=== PATIENT | female | born 1965 | race Caucasian/White ===

== ENCOUNTER 2020-07-25 05:38 | Inpatient (IN) ==
[2020-07-04 11:34] LABS: Basophils % 0.2 % (0.0-0.8); Eosinophils # 0.1 10*3/uL (0.0-0.87); Eosinophils % 1.2 % (0.00-10.9); Hematocrit 35.6 VOL% (35.7-47.0); Hemoglobin 12.3 GM/DL (12.0-16.0); Immature Granulocytes % 0.4 %; Immature Granulocytes Absolute 0.02 #; Lymphocytes # 1.2 10*3/uL (1.4-4.0); Lymphocytes % 24.2 % (21.3-54.2); Mean Corpuscular HGB Conc 34.6 GM/DL (32-36); Mean Corpuscular Volume 89.4 FL (87-102); Mean Platelet Volume 10.8 FL (9.6-12.0); Monocytes % 6.3 % (1.7-12.7); Neutrophils % 67.7 % (38.7-73.9); Platelet Count 275 T/CUMM (130-400); Red Blood Count 3.98 MC/CUMM (3.8-5.5); Red Cell Distribution Width 12.9 % (9.3-17.3); White Blood Count 4.9 T/CUMM (4-12)
[2020-07-04 11:50] LABS: Albumin 3.7 G/DL (3.4-5.0); Bacteria,Urine Occasional /HPF (Few); Bilirubin,Total 0.7 MG/DL (0.2-1.0); Bilirubin,Urine Negative (Negative); Blood, Urine Negative (Negative); Calcium 8.8 MG/DL (8.5-10.1); Glucose,Urine (UA) Negative (Negative); Ketones,Urine Negative (Negative); Nitrite,Urine Negative (Negative); Osmolality,Calculated 278.4 MOS/KG (273-304); Potassium 3.9 MMOL/L (3.5-5.1); Protein,Urine Negative; RBC,Urine <1 /HPF (0-4); Squamous Epithelial Cell,Urine Occasional /HPF (0-10); Total Protein 7.1 G/DL (6.4-8.3); Urine Appearance CLEAR (Clear); Urine Color Straw (Yellow); Urine Specific Gravity 1.003 (1.001-1.035); Urine Urobilinogen < 2.0 EU/DL (0.2-1.0)
[2020-07-04 12:38] LABS: HIV Antigen/Antibody Result Nonreactive (Nonreactive)
[~2020-07-25 05:38] MED LIST: AMPICILLIN/SULBACTAM 3,000 MG in SODIUM CHLORIDE 0.9% 100 ML IV ONE
[2020-07-25] MEDS ORDERED: AMPICILLIN/SULBACTAM 3,000 MG in SODIUM CHLORIDE 0.9% 100 ML IV ONE (06:00)
[2020-07-25] MEDS ORDERED: FAMOTIDINE 20 MG TABLET PO ONE (06:26)
[2020-07-25] MEDS ORDERED: DIAZEPAM 5 MG TABLET PO ONE (06:26)
[2020-07-25] MEDS ORDERED: DIAZEPAM 5 MG TABLET ONE (06:29)
[2020-07-25] MEDS ORDERED: FAMOTIDINE 20 MG TABLET ONE (06:29)
[2020-07-25] MEDS ORDERED: LACTATED RINGERS 1,000 ML IV SCH ×2 (06:30→11:30)
[2020-07-25] MEDS ORDERED: SUCCINYLCHOLINE 200 MG/10 ML VIAL ONE (06:34)
[2020-07-25] MEDS ORDERED: LIDOCAINE 2% 5 ML VIAL ONE (06:34)
[2020-07-25] MEDS ORDERED: propofoL 200 MG/20 ML VIAL IV ONE (06:34)
[2020-07-25] MEDS ORDERED: ONDANSETRON 4 MG/2 ML VIAL ONE ×2 (06:34→11:44)
[2020-07-25] MEDS ORDERED: ROCURONIUM 50 MG/5 ML VIAL IV ONE ×2 (06:34→10:46)
[2020-07-25] MEDS ORDERED: fentaNYL 100 MCG/2 ML VIAL ONE (06:35)
[2020-07-25] MEDS ORDERED: MIDAZOLAM 2 MG/2 ML VIAL ONE (06:35)
[2020-07-25] MEDS ORDERED: DEXAMETHASONE 4 MG/1 ML VIAL ONE ×2 (06:36)
[2020-07-25] MEDS ORDERED: TISSUE ADHESIVE 1 EACH APPLICATOR TOP ONE (06:36)
[2020-07-25] MEDS ORDERED: KETOROLAC 30 MG/1 ML VIAL ONE (06:36)
[2020-07-25] MEDS ORDERED: ACETAMINOPHEN 1,000 MG/100 ML VIAL IV ONE (06:36)
[2020-07-25] MEDS ORDERED: SEVOFLURANE 1 UNIT/15 MINUTE INH ONE ×12 (06:39→10:47)
[2020-07-25] MEDS ORDERED: PHENYLEPHRINE 1 MG/10 ML SYRINGE IV ONE (09:05)
[2020-07-25] MEDS ORDERED: NEOSTIGMINE 10 MG/10 ML VIAL ONE ×4 (10:17)
[2020-07-25] MEDS ORDERED: ONDANSETRON 4 MG/2 ML VIAL IV PRN ×2 (11:13→11:42)
[2020-07-25] MEDS ORDERED: BISACODYL 10 MG SUPP RECTAL PRN (11:13)
[2020-07-25] MEDS ORDERED: BENZOCAINE/MENTHOL LOZENGE 18/BOX PO PRN (11:13)
[2020-07-25] MEDS ORDERED: ACETAMINOPHEN 325 MG TABLET PO PRN (11:13)
[2020-07-25] MEDS ORDERED: HYDROmorphone 2 MG/1 ML VIAL IV PRN ×2 (11:14→11:42)
[2020-07-25 11:28] LABS: Bilirubin,Urine Negative (Negative); Blood, Urine Small mg/dL (Negative); Glucose,Urine (UA) Negative (Negative); Ketones,Urine Negative (Negative); Nitrite,Urine Negative (Negative); Protein,Urine Negative; RBC,Urine 1 /HPF (0-4); Squamous Epithelial Cell,Urine Occasional /HPF (0-10); Urine Appearance CLEAR (Clear); Urine Color Colorless (Yellow); Urine Specific Gravity 1.006 (1.001-1.035); Urine Urobilinogen < 2.0 EU/DL (0.2-1.0)
[2020-07-25] MEDS ORDERED: HYDROmorphone 2 MG/1 ML VIAL ONE (12:06)
[2020-07-25] MEDS: ceFAZolin 1,000 MG in SYRINGE 1 EACH IV SCH (17:11)
[2020-07-25] MEDS ORDERED: ceFAZolin 1,000 MG in SYRINGE 1 EACH IV SCH (17:13)
[2020-07-25 18:01] LABS: Basophils % 0.1 % (0.0-0.8); Hematocrit 33.5 VOL% (35.7-47.0); Hemoglobin 10.9 GM/DL (12.0-16.0); Immature Granulocytes % 0.6 %; Immature Granulocytes Absolute 0.08 #; Lymphocytes # 0.4 10*3/uL (1.4-4.0); Lymphocytes % 3.2 % (21.3-54.2); Mean Corpuscular HGB Conc 32.5 GM/DL (32-36); Mean Corpuscular Volume 94.4 FL (87-102); Mean Platelet Volume 10.2 FL (9.6-12.0); Monocytes % 3.6 % (1.7-12.7); Neutrophils % 92.5 % (38.7-73.9); Platelet Count 242 T/CUMM (130-400); Red Blood Count 3.55 MC/CUMM (3.8-5.5); Red Cell Distribution Width 12.8 % (9.3-17.3); White Blood Count 12.3 T/CUMM (4-12)
[2020-07-25 18:56] LABS: Band Neutrophils 7 % (0-10); Lymphocytes 4 % (20-55); Platelet Estimate Normal; Segmented Neutrophils 85 % (50-85); Total Cells Counted 100
[2020-07-26] MEDS: ceFAZolin 1,000 MG in SYRINGE 1 EACH IV SCH (00:46)
[2020-07-26] MEDS: SIMETHICONE CHEW 80 MG TABLET PO PRN ×2 (01:00→09:31)
[2020-07-26] MEDS: IBUPROFEN 800 MG TABLET PO PRN ×3 (01:00→20:44)
[2020-07-26 06:07] LABS: Basophils % 0.1 % (0.0-0.8); Eosinophils % 0.1 % (0.00-10.9); Hemoglobin 9.7 GM/DL (12.0-16.0); Immature Granulocytes % 0.4 %; Immature Granulocytes Absolute 0.03 #; Lymphocytes # 1.3 10*3/uL (1.4-4.0); Lymphocytes % 16.4 % (21.3-54.2); Mean Corpuscular HGB Conc 32.3 GM/DL (32-36); Mean Corpuscular Volume 94.6 FL (87-102); Mean Platelet Volume 10.4 FL (9.6-12.0); Monocytes % 11.3 % (1.7-12.7); Neutrophils % 71.7 % (38.7-73.9); Platelet Count 220 T/CUMM (130-400); Red Blood Count 3.17 MC/CUMM (3.8-5.5); White Blood Count 8.1 T/CUMM (4-12)
[2020-07-26] MEDS: MAGNESIUM HYDROXIDE SUSP 30 ML UDCUP PO PRN ×2 (09:31→20:44)
[2020-07-26] MEDS: DOCUSATE SODIUM 100 MG CAPSULE PO PRN ×2 (09:31→20:44)
[2020-07-26] MEDS: METOCLOPRAMIDE 10 MG TABLET PO PRN (20:44)
[2020-07-27] MEDS: METOCLOPRAMIDE 10 MG TABLET PO PRN (05:37)
[2020-07-27] MEDS: IBUPROFEN 800 MG TABLET PO PRN (05:37)
[2020-07-27 07:15] VITALS: BP 104/56
[2020-07-27] MEDS ORDERED: MAGNESIUM CITRATE 300 ML BOTTLE PO ONE (07:23)
[2020-07-27] MEDS: DOCUSATE SODIUM 100 MG CAPSULE PO PRN (08:36)
[2020-07-27] MEDS ORDERED: FERROUS SULFATE 325 MG TABLET PO SCH (09:00)
[2020-07-28] MEDS ORDERED: FERROUS SULFATE 325 MG TABLET PO SCH (09:00)
== END 2020-07-27 10:10 | disposition home or self-care (01) | DRG 743 ==
LOC: N.OR 05:38 → N.OB 05:38 → N.SDSINP 05:41 → N.OB 10:36 → OBSVTOIN 12:33
PROVIDERS: ADMIT Obstetrics & Gynecology; ATTEND Obstetrics & Gynecology